=== PATIENT | male | born 1970 | race Caucasian/White ===

== ENCOUNTER 2017-10-02 17:06 | Emergency (ER) | payer OTHER ==
[~2017-10-02] VITALS: Ht 193 cm; Wt 113.4 kg
[~2017-10-02 17:06] MED LIST: AEROECLIPSE II1 EACH MC; ALBU90OI INH; AMOX250; GUAI600T33; Neurontin 300300 MG PO; PRED20 PO; Prednisone20 MG PO; Ventolin Soln3 ML INH; Zithromax250 MG PO
[2017-10-02] MEDS ORDERED: IBUP800 PO (17:49)
[2017-10-02] MEDS ORDERED: CYCL10 PO (17:49)
[2017-10-02] MEDS ORDERED: Percocet 5-3251 EACH PO (17:49)
== END 2017-10-02 18:01 | disposition home or self-care (01) ==
LOC: ER 17:06
DX: G89.29 Other chronic pain (principal); M54.5 Low back pain; E11.40 Type 2 diabetes mellitus with diabetic neuropathy, unspecified; Z88.5 Allergy status to narcotic agent; Z79.899 Other long term (current) drug therapy; Z79.52 Long term (current) use of systemic steroids
CPT/HCPCS: 96372; 99283; J1885

== ENCOUNTER 2018-05-10 19:55 | Emergency (ER) | payer OTHER ==
[~2018-05-10] VITALS: Ht 193 cm; Wt 112.5 kg
[~2018-05-10 19:55] MED LIST changes: +CYCL10 PO; +IBUP800 PO; +Percocet 5-3251 EACH PO
== END 2018-05-10 20:41 | disposition home or self-care (01) ==
LOC: ER 19:55
DX: S51.812A Laceration without foreign body of left forearm, initial encounter (principal); Z23 Encounter for immunization; Z88.5 Allergy status to narcotic agent; Z79.899 Other long term (current) drug therapy; Z79.52 Long term (current) use of systemic steroids; Z79.51 Long term (current) use of inhaled steroids; W26.0XXA Contact with knife, initial encounter
CPT/HCPCS: 12001; 90471; 90714; 99282